=== PATIENT | male | born 1955 | race Caucasian/White ===

== ENCOUNTER 2022-10-19 06:50 | Observation (INO) | payer MEDICARE ==
[2022-10-17 11:22] LABS: BASOPHILS % (AUTO) 0.8 % (0.0-5.0); EOSINOPHILS % (AUTO) 2.2 % (0.0-8.0); HEMATOCRIT 45.1 % (42-54); LYMPHOCYTES % (AUTO) 23.7 % (21.0-51.0); MEAN CORPUSCULAR HEMOGLOBIN 30.2 pg (27.0-33.0); MEAN CORPUSCULAR HGB CONC 32.2 g/dL (32.0-36.0); MONOCYTES % (AUTO) 7.9 % (3.0-13.0); NEUTROPHILS % (AUTO) 64.9 % (40.0-77.0); PLATELET COUNT (AUTO) 170 K/uL (130-400); RED CELL DISTRIBUTION WIDTH 13.1 % (11.0-15.5)
[2022-10-17 11:35] VITALS: BP 129/72
[2022-10-17 11:37] LABS: POTASSIUM 5.2 mmol/L (3.5-5.1)
[2022-10-17 12:03] LABS: INR 0.95 (0.85-1.15); PROTHROMBIN TIME 10.4 SEC (9.6-11.6)
[2022-10-19] VITALS (30 sets, daily range): BP systolic 91–162; BP diastolic 48–80
[~2022-10-19] VITALS: Ht 180.3 cm; Wt 104.9 kg
[~2022-10-19 06:50] MED LIST: LEVE-43 PO; ROSU20TA31 PO
[2022-10-19] MEDS ORDERED: CEFAZOLIN SODIUM 2 GM VIAL ONE (07:26)
[2022-10-19] MEDS ORDERED: LACTATED RINGERS 1000ML 1,000 ML IV ONE (07:26)
[2022-10-19] MEDS ORDERED: TRANEXAMIC ACID 1000MG/10ML ONE (10:41)
[2022-10-19] MEDS ORDERED: FENTANYL CITRATE PF 50 MCG/1 ML 2ML VIAL ONE (10:43)
[2022-10-19] MEDS ORDERED: PROPOFOL 10 MG/ML 20ML VIAL IV ONE (10:43)
[2022-10-19] MEDS ORDERED: HYDROMORPHONE 1 MG INJ ONE ×2 (11:19→18:10)
[2022-10-19] MEDS ORDERED: FAMOTIDINE 20MG VIAL IV ONE (11:19)
[2022-10-19] MEDS ORDERED: ROCURONIUM 10MG/1ML SYR 10 MG/ML ML ONE ×2 (11:49→13:27)
[2022-10-19] MEDS ORDERED: TRANEXAMIC ACID 1000MG/10ML IV ONE (12:25)
[2022-10-19] MEDS ORDERED: CEFAZOLIN SODIUM 2 GM VIAL IVPB ONE (12:30)
[2022-10-19] MEDS ORDERED: ONDANSETRON 4MG INJ ONE ×2 (12:49→15:28)
[2022-10-19] MEDS ORDERED: GLYCOPYRROLATE 1 MG/5 ML SYRINGE ONE (13:14)
[2022-10-19] MEDS ORDERED: NEOSTIGMINE 5MG/5ML SYR IV ONE (14:36)
[2022-10-19] MEDS ORDERED: HYDROCODONE/ACETAMINOPHEN 10/325 MG TAB PO PRN (15:00)
[2022-10-19] MEDS ORDERED: POTASSIUM CHLORIDE 20MEQ/100ML 100 ML IV PRN (15:00)
[2022-10-19] MEDS ORDERED: ONDANSETRON 4MG INJ IVP PRN (15:00)
[2022-10-19] MEDS: ACETAMINOPHEN 1,000 MG/100 ML VIAL IV SCH ×2 (15:00→21:47)
[2022-10-19] MEDS ORDERED: POTASSIUM CHLORIDE 10% ELIXIR 20 MEQ/15 ML UDCUP PO PRN (15:00)
[2022-10-19] MEDS: 0.9%NACL 1000ML 1,000 ML IV SCH ×2 (15:00→22:58)
[2022-10-19] MEDS ORDERED: HYDROCODONE/ACETAMINOPHEN 5/325 MG TAB PO PRN (15:00)
[2022-10-19] MEDS ORDERED: KCL 20 MEQ ERTAB PO PRN (15:00)
[2022-10-19] MEDS ORDERED: ACETAMINOPHEN 1,000 MG/100 ML VIAL IV ONE (15:09)
[2022-10-19] MEDS: IBUPROFEN 800MG + NS 250ML IV SCH (18:49)
[2022-10-19] MEDS: FAMOTIDINE 20MG TAB PO SCH (19:46)
[2022-10-19] MEDS: LEVETIRACETAM 500 MG TABLET PO SCH (19:46)
[2022-10-19] MEDS: CEFAZOLIN SODIUM 2 GM VIAL IVP SCH (19:57)
[2022-10-19] MEDS: MORPHINE 4 MG SYG IVP PRN (21:53)
[2022-10-20 00:01] VITALS: BP 98/49
[2022-10-20] MEDS: IBUPROFEN 800MG + NS 250ML IV SCH ×2 (01:59→10:39)
[2022-10-20] MEDS: CEFAZOLIN SODIUM 2 GM VIAL IVP SCH (03:56)
[2022-10-20 04:00] VITALS: BP 90/55
[2022-10-20] MEDS: ACETAMINOPHEN 1,000 MG/100 ML VIAL IV SCH (04:46)
[2022-10-20 05:40] LABS: HEMATOCRIT 33.8 % (42-54); MEAN CORPUSCULAR HEMOGLOBIN 30.4 pg (27.0-33.0); MEAN CORPUSCULAR HGB CONC 32.2 g/dL (32.0-36.0); MEAN CORPUSCULAR VOLUME 94.4 fL (79-99); RED BLOOD CELL COUNT(AUTO) 3.58 MIL/uL (4.50-6.20); RED CELL DISTRIBUTION WIDTH 13.5 % (11.0-15.5); WHITE BLOOD COUNT (AUTO) 6.5 K/uL (4.8-10.8)
[2022-10-20 05:57] LABS: CREATININE 1.3 mg/dL (0.5-1.5)
[2022-10-20 07:30] VITALS: BP 122/55
[2022-10-20] MEDS: FAMOTIDINE 20MG TAB PO SCH (08:02)
[2022-10-20] MEDS: LEVETIRACETAM 500 MG TABLET PO SCH (08:02)
[2022-10-20] MEDS ORDERED: POLYETHYLENE GLYCOL 3350 17 GM POWD.PACK PO SCH (09:00)
[2022-10-20] MEDS: 0.9%NACL 1000ML 1,000 ML IV SCH (11:00)
[2022-10-20 12:00] VITALS: BP 100/69
[2022-10-20] MEDS ORDERED: IBUPROFEN 800MG + NS 250ML IV SCH (12:00)
[2022-10-20] MEDS: MORPHINE 4 MG SYG IVP PRN (16:20)
[2022-10-20] MEDS ORDERED: ASPIRIN 81 MG EC TAB PO SCH (21:00)
[2022-10-22] MEDS ORDERED: BISACODYL 10 MG SUPP.RECT RC PRN (15:00)
== END 2022-10-20 16:30 | disposition home or self-care (01) ==
LOC: DAH 06:50 → DAHIP 06:51 → 4CH 18:25 → 4AH 10-20 08:59
PROVIDERS: ADMIT Orthopaedic Surgery; ATTEND Orthopaedic Surgery
DX: M17.11 Unilateral primary osteoarthritis, right knee (principal); Z20.822 Contact with and (suspected) exposure to COVID-19
CPT/HCPCS: 80048 ×2; 85025; 85610; 85730; 87426; 36415 ×2; 93005; 87641; 64447; 27447; 96376 ×2; 96365; 96366 ×2; 96375; 97039 ×2; 85027; 97161; 97116 ×2; 97530 ×2; C1776 ×4; G0378 ×23; J7030; J7120; J3490 ×4; J3010; J1170 ×2; J2710; J2704; J2405 ×3; J2270 ×2; J1741 ×5; J0690 ×4; A6223; G0168; A4649 ×4; A6212; A4930